=== PATIENT | female | born 2000 | race Caucasian/White ===

== ENCOUNTER → 2021-01-17 | Day surgery (SDC) | payer OTHER ==
[2021-01-15 13:22] VITALS: BMI 21.9
[~2021-01-17] MED LIST: Bupivacaine PF 0.5% 30 ML VIAL ONE; Dexamethasone 20 MG/5 ML VIAL ONE; Fentanyl 100 MCG/2 ML VIAL ONE; Ketorolac Tromethamine 30 MG/ML VIAL ONE; Lidocaine 1% MPF 2 ML VIAL ONE; Lidocaine 1% PF 5 ML VIAL ONE; Meperidine HCl/PF 25 MG/ML VIAL ONE; Midazolam HCl 2 mg/2 ml Vial ONE; Neomycin-Polymyxin 1 ML AMP ONE; Ondansetron PF 4 MG/2 ML Vial ONE; PROPOFOL 20 ML ONE; ROPIVACAINE HCL NERVE BLCK SCH
[2021-01-17 11:39] LABS: Hemoglobin 13.5 g/dL (12.0-15.5); Mean Corpuscular HGB CONC 34.4 g/dL (32.0-36.0); Mean Corpuscular Hemoglobin 31.9 pg (27.0-33.0); Mean Corpuscular Volume 92.9 fl (81.6-98.3); Platelet Count 195 10x3/uL (150-450); RBC Distribution Width 12.2 % (11.5-14.5); Red Blood Cell (RBC) Count 4.23 10x6/uL (3.90-5.03); White Blood Cell (WBC) Count 6.6 10x3/uL (3.5-10.5)
[2021-01-17 11:51] LABS: Anion Gap 12 mmol/L (10-20); BUN (Urea Nitrogen) 8 mg/dL (8.4-21.0); Calc. Creatinine Clearance 103 mL/min (70-130); Calcium 9.1 mg/dL (7.8-10.44); Carbon Dioxide 23 mmol/L (22-29); Chloride 105 mmol/L (98-107); Glucose 88 mg/dL (70-105); Potassium 3.9 mmol/L (3.5-5.1); Sodium 136 mmol/L (136-145)
== END | disposition home or self-care (01) ==
LOC: CSHSDC 13:50
PROVIDERS: ATTEND Podiatrist Foot & Ankle Surgery
PROC: 0SGK04Z Fusion of Right Tarsometatarsal Joint with Internal Fixation Device, Open Approach (ICD-10-PCS; principal; 2021-01-17)
DX: M21.611 Bunion of right foot (principal); M20.11 Hallux valgus (acquired), right foot; M25.374 Other instability, right foot; M79.671 Pain in right foot
CPT/HCPCS: 76000; 80048; 85027; C1713; J0690; J1100; J1885; J2175; J2250; J2405; J2704; J2795; J3010; S0020

== ENCOUNTER 2025-08-16 10:44 | Day surgery (SDC) | payer OTHER ==
[2025-08-16] MEDS ORDERED: hydrALAZINE 20 MG/ML VIAL SLOW IVP PRN (11:13)
[2025-08-16 11:28] LABS: Glucose, Urine (Dipstick) Normal (Negative); Leukocyte 25 (Negative); Protein, Urine (Dipstick) Negative (Neg-Trace); Specific Gravity, Urine 1.010 (1.005-1.030)
[2025-08-16 12:00] LABS: Bacteria/HPF 1+ HPF (None Seen); CAUTI Indications for Culture Pregnancy; RBC/HPF None Seen HPF (0-3); WBC/HPF 0-3 HPF (0-3)
[2025-08-16 12:01] LABS: Urine Culture Reflex Yes Yes
== END 2025-08-16 13:51 | disposition home or self-care (01) ==
LOC: CSHLD/OP 10:44
PROVIDERS: ATTEND Family Medicine
DX: O26.853 Spotting complicating pregnancy, third trimester (principal); Z3A.33 33 weeks gestation of pregnancy; Z67.31 Type AB blood, Rh negative; Z88.8 Allergy status to other drugs, medicaments and biological substances
CPT/HCPCS: 76817; 81001; 87086; 87480; 87510; 87660; 99283